=== PATIENT | female | born 1955 | race Caucasian/White ===

== ENCOUNTER 2022-03-23 11:16 | Inpatient (IN) | payer OTHER ==
[~2022-03-23] VITALS: Ht 167.6 cm; Wt 74.8 kg
[2022-03-23 12:42] LABS: BILIRUBIN,DIRECT 1.3 mg/dL (0.0-0.2); BILIRUBIN,TOTAL 2.6 mg/dL (0.2-1.0); CREATININE 1.2 mg/dL (0.6-1.3); HEMATOCRIT 23.9 % (31.2-41.9); MEAN CORPUSCULAR HEMOGLOBIN 27.2 uug (24.7-32.8); PLATELET COUNT (AUTO) 52 K/uL (179-408); POTASSIUM 5.6 mmol/L (3.5-5.1); TOTAL PROTEIN, SERUM 6.4 g/dL (6.4-8.2)
[2022-03-23 14:18] LABS: EOSINOPHILS % (MANUAL) 1 % (0-8); LYMPHOCYTES % (MANUAL) 26 % (20-40); MONOCYTES % (MANUAL) 5 % (2-10); NEUTROPHILS % (MANUAL) 68 % (42-75)
[2022-03-23] MEDS ORDERED: MORPHINE SULFATE 4 MG/1 ML DISP.SYRIN IV ONE (14:30)
[2022-03-23] MEDS ORDERED: ONDANSETRON 4 MG/2 ML VIAL IV ONE (14:30)
[2022-03-23] MEDS ORDERED: PIPERACILLIN SODIUM/TAZOBACTAM 3.375 G in IV DEXTROSE 5% 50 ML IV ONE (15:15)
[2022-03-23] MEDS ORDERED: MORPHINE SULFATE 4 MG/1 ML DISP.SYRIN ONE (15:36)
[2022-03-23] MEDS ORDERED: ONDANSETRON 4 MG/2 ML VIAL ONE (15:36)
[2022-03-23] MEDS ORDERED: PIPERACILLIN/TAZOBACTAM/D5W 50 ML IV ONE (15:36)
--- NOTE | 2022-03-23 17:00 | NUR ---
Received this admission from ER per [facility], this 66 yo female with chief complaint of abdominal pain. Transferred to bed comfortably. Routine admission care rendered. Awake, alert, oriented x 4, generalized weakness, abdomen distended, jaundiced. Midline RUE intact.
[2022-03-23 17:04] VITALS: BP 133/75
[2022-03-23] MEDS ORDERED: TEMAZEPAM 15 MG CAPSULE PO PRN (18:30)
--- NOTE | 2022-03-23 18:36 | NUR ---
Dr. Mccabe informed of admission. Home medication followed up with son, unable to access at this time. Called pharmacy, faxed list of medications.
[2022-03-23] MEDS ORDERED: VENL37.591 PO (18:58)
[2022-03-23] MEDS ORDERED: FURO40TA5 PO ×3 (18:58→19:24)
[2022-03-23] MEDS ORDERED: HYDR-3980 PO (18:58)
[2022-03-23] MEDS ORDERED: DICLOFENAC (18:58)
[2022-03-23] MEDS ORDERED: GABA600T12 PO (18:58)
[2022-03-23] MEDS ORDERED: GABA-532 PO (18:58)
[2022-03-23] MEDS ORDERED: PANT40TA49 PO (18:58)
[2022-03-23] MEDS ORDERED: SPIR50TA5 PO ×2 (18:58→19:26)
[2022-03-23] MEDS ORDERED: MIRT7.5T10 PO (19:29)
[2022-03-23 20:00] VITALS: BP 117/72
[2022-03-23] MEDS ORDERED: GABAPENTIN 300 MG CAPSULE PO PRN (20:30)
[2022-03-23] MEDS: MIRTAZAPINE 15 MG TABLET PO SCH (21:51)
[2022-03-24] VITALS (8 sets, daily range): BP systolic 114–131; BP diastolic 56–75
--- NOTE | 2022-03-24 05:01 | NUR ---
Patient awake, no sob no chest pain, no complain of pain, with distended abdomen/ascites, assisted with toileting, slept most of the night, cont to monitor. no bm on this shift, endorse to next shift to collect bm.
[2022-03-24 07:00] LABS: MEAN CORPUSCULAR HEMOGLOBIN 27.7 uug (24.7-32.8); MEAN CORPUSCULAR VOLUME 84.4 fL (75.5-95.3); PLATELET COUNT (AUTO) 78 K/uL (179-408)
[2022-03-24 07:10] LABS: HEMATOCRIT 19.6 % (31.2-41.9)
[2022-03-24 07:43] LABS: BILIRUBIN,TOTAL 2.2 mg/dL (0.2-1.0); CREATININE 1.2 mg/dL (0.6-1.3); MAGNESIUM 2.1 mg/dL (1.8-2.4); TOTAL PROTEIN, SERUM 5.3 g/dL (6.4-8.2)
[2022-03-24] MEDS ORDERED: PANTOPRAZOLE SODIUM 40 MG VIAL IV SCH (09:00)
[2022-03-24] MEDS: FUROSEMIDE 40 MG/4 ML VIAL IV SCH ×2 (10:01→16:39)
[2022-03-24] MEDS: SPIRONOLACTONE 50 MG TABLET PO SCH ×2 (10:09→16:40)
[2022-03-24] MEDS: MORPHINE SULFATE 2 MG/1 ML DISP.SYRIN IV PRN ×3 (10:10→23:11)
[2022-03-24 10:35] LABS: LYMPHOCYTES % (MANUAL) 16 % (20-40); MONOCYTES % (MANUAL) 1 % (2-10); NEUTROPHILS % (MANUAL) 83 % (42-75)
[2022-03-24] MEDS: CEFTRIAXONE 1 G in IV DEXTROSE 5% 50 ML IV SCH (18:46)
[2022-03-24] MEDS: METRONIDAZOLE 500 MG/NS 100ML 500 MG in PREMIXED 1 EACH IV SCH (20:21)
[2022-03-24] MEDS: PANTOPRAZOLE SODIUM 40 MG VIAL IV SCH (20:23)
[2022-03-24] MEDS: MIRTAZAPINE 15 MG TABLET PO SCH (20:35)
[2022-03-25 04:00] VITALS: BP 122/73
[2022-03-25] MEDS: METRONIDAZOLE 500 MG/NS 100ML 500 MG in PREMIXED 1 EACH IV SCH ×2 (04:00→16:48)
--- NOTE | 2022-03-25 05:29 | NUR ---
Patient alert oriented, speak turkmen but understand [place] communicate well with parts interpreter, Patient complaining of abdominal pain secondary to ascites, given pain meds with help after 30 minutes, assisted with toileting. S/p blood transfusion 1 unit PRBC by AM RN tolerate well, no adverse reaction noted, cont to monitor.
[2022-03-25 07:46] LABS: HEMATOCRIT 25.6 % (31.2-41.9); MEAN CORPUSCULAR HEMOGLOBIN 27.9 uug (24.7-32.8); PLATELET COUNT (AUTO) 67 K/uL (179-408)
[2022-03-25 07:53] LABS: CREATININE 1.3 mg/dL (0.6-1.3); MAGNESIUM 1.9 mg/dL (1.8-2.4); PHOSPHOROUS 4.2 mg/dL (2.5-4.9); POTASSIUM 4.5 mmol/L (3.5-5.1)
[2022-03-25 08:08] LABS: BILIRUBIN,DIRECT 1.7 mg/dL (0.0-0.2); BILIRUBIN,TOTAL 3.2 mg/dL (0.2-1.0)
[2022-03-25 09:22] LABS: BILIRUBIN,DIRECT 1.6 mg/dL (0.0-0.2); BILIRUBIN,TOTAL 3.2 mg/dL (0.2-1.0); TOTAL PROTEIN, SERUM 5.8 g/dL (6.4-8.2)
[2022-03-25] MEDS: FUROSEMIDE 40 MG/4 ML VIAL IV SCH ×2 (11:03→16:48)
[2022-03-25] MEDS: PANTOPRAZOLE SODIUM 40 MG VIAL IV SCH ×2 (11:03→21:51)
[2022-03-25] MEDS: SPIRONOLACTONE 50 MG TABLET PO SCH ×2 (11:04→16:48)
[2022-03-25] MEDS: MORPHINE SULFATE 2 MG/1 ML DISP.SYRIN IV PRN ×2 (11:05→16:52)
[2022-03-25 11:37] VITALS: BP 119/63
[2022-03-25 16:22] VITALS: BP 92/50
[2022-03-25] MEDS: CEFTRIAXONE 1 G in IV DEXTROSE 5% 50 ML IV SCH (18:00)
[2022-03-25 20:00] VITALS: BP 113/61
[2022-03-25] MEDS: MIRTAZAPINE 15 MG TABLET PO SCH (21:52)
[2022-03-26] MEDS: METRONIDAZOLE 500 MG/NS 100ML 500 MG in PREMIXED 1 EACH IV SCH ×4 (03:01→21:03)
[2022-03-26 04:00] VITALS: BP 109/63
[2022-03-26] MEDS: MORPHINE SULFATE 2 MG/1 ML DISP.SYRIN IV PRN ×4 (04:46→21:03)
[2022-03-26 07:07] LABS: HEMATOCRIT 22.6 % (31.2-41.9); MEAN CORPUSCULAR VOLUME 85.2 fL (75.5-95.3); PLATELET COUNT (AUTO) 57 K/uL (179-408)
[2022-03-26 07:18] LABS: CREATININE 1.2 mg/dL (0.6-1.3); MAGNESIUM 1.7 mg/dL (1.8-2.4); PHOSPHOROUS 3.6 mg/dL (2.5-4.9); POTASSIUM 4.3 mmol/L (3.5-5.1)
--- NOTE | 2022-03-26 07:22 | NUR ---
PT COMPLAINED OF ABDOMINAL PAIN MEDICATED WITH MORPHINE ORDERED. STILL AWAITING MEDICAL RECORDS FROM [facility].
[2022-03-26 07:23] LABS: BILIRUBIN,DIRECT 1.2 mg/dL (0.0-0.2); BILIRUBIN,TOTAL 2.1 mg/dL (0.2-1.0)
[2022-03-26 08:36] LABS: BILIRUBIN,DIRECT 1.2 mg/dL (0.0-0.2); TOTAL PROTEIN, SERUM 5.5 g/dL (6.4-8.2)
[2022-03-26] MEDS: FUROSEMIDE 40 MG/4 ML VIAL IV SCH ×2 (09:13→16:17)
[2022-03-26] MEDS: PANTOPRAZOLE SODIUM 40 MG VIAL IV SCH ×2 (09:14→21:09)
[2022-03-26] MEDS: SPIRONOLACTONE 50 MG TABLET PO SCH ×2 (09:14→16:17)
[2022-03-26] MEDS ORDERED: MAGNESIUM OXIDE 400 MG TABLET PO ONE (09:15)
--- NOTE | 2022-03-26 11:00 | NUR ---
AWAKE, ALERT AND ORIENTED. ABDOMEN GROSSLY DISTENDED AND FIRM. DENIES PAIN OR DISCOMFORT AT THIS TIME.
[2022-03-26 11:42] VITALS: BP 106/67
[2022-03-26 15:34] LABS: LYMPHOCYTES % (MANUAL) 19 % (20-40); MONOCYTES % (MANUAL) 9 % (2-10); NEUTROPHILS % (MANUAL) 72 % (42-75)
[2022-03-26 16:45] VITALS: BP 112/72
[2022-03-26] MEDS: CEFTRIAXONE 1 G in IV DEXTROSE 5% 50 ML IV SCH (17:08)
[2022-03-26 20:08] VITALS: BP 99/53
[2022-03-26] MEDS: MIRTAZAPINE 15 MG TABLET PO SCH (21:03)
[2022-03-27] MEDS: MORPHINE SULFATE 2 MG/1 ML DISP.SYRIN IV PRN ×4 (02:52→23:44)
--- NOTE | 2022-03-27 03:14 | NUR ---
ABDOMEN REMAINS VERY DISTENDED. PT MEDICATED PRN WITH MORPHINE IV INDICATED.WITH GOOD EFFECT.
[2022-03-27] MEDS: METRONIDAZOLE 500 MG/NS 100ML 500 MG in PREMIXED 1 EACH IV SCH ×3 (04:03→20:28)
[2022-03-27 04:59] VITALS: BP 121/67
[2022-03-27 06:55] LABS: HEMATOCRIT 24.7 % (31.2-41.9); MEAN CORPUSCULAR HEMOGLOBIN 27.9 uug (24.7-32.8); PLATELET COUNT (AUTO) 57 K/uL (179-408)
[2022-03-27 07:58] LABS: CREATININE 1.2 mg/dL (0.6-1.3); MAGNESIUM 1.8 mg/dL (1.8-2.4); PHOSPHOROUS 3.6 mg/dL (2.5-4.9); POTASSIUM 4.8 mmol/L (3.5-5.1)
[2022-03-27 08:26] LABS: BILIRUBIN,DIRECT 0.8 mg/dL (0.0-0.2); BILIRUBIN,TOTAL 1.5 mg/dL (0.2-1.0); TOTAL PROTEIN, SERUM 5.7 g/dL (6.4-8.2)
[2022-03-27] MEDS: FUROSEMIDE 40 MG/4 ML VIAL IV SCH ×2 (09:07→17:55)
[2022-03-27] MEDS: PANTOPRAZOLE SODIUM 40 MG VIAL IV SCH ×2 (09:07→21:33)
[2022-03-27] MEDS: SPIRONOLACTONE 50 MG TABLET PO SCH ×2 (09:07→17:55)
[2022-03-27 11:08] VITALS: BP 109/52
[2022-03-27 15:29] VITALS: BP 105/59
[2022-03-27] MEDS: CEFTRIAXONE 1 G in IV DEXTROSE 5% 50 ML IV SCH (17:56)
[2022-03-27 20:27] VITALS: BP 108/57
[2022-03-27] MEDS: MIRTAZAPINE 15 MG TABLET PO SCH (21:36)
[2022-03-28] MEDS: METRONIDAZOLE 500 MG/NS 100ML 500 MG in PREMIXED 1 EACH IV SCH ×3 (03:06→21:10)
[2022-03-28 04:15] VITALS: BP 104/59
[2022-03-28 08:09] LABS: BILIRUBIN,DIRECT 0.9 mg/dL (0.0-0.2); BILIRUBIN,TOTAL 1.8 mg/dL (0.2-1.0); CREATININE 1.2 mg/dL (0.6-1.3); MAGNESIUM 1.8 mg/dL (1.8-2.4); POTASSIUM 4.5 mmol/L (3.5-5.1); TOTAL PROTEIN, SERUM 5.2 g/dL (6.4-8.2)
[2022-03-28 08:17] LABS: BILIRUBIN,DIRECT 0.9 mg/dL (0.0-0.2); BILIRUBIN,TOTAL 1.8 mg/dL (0.2-1.0)
[2022-03-28 08:25] LABS: HEMATOCRIT 21.3 % (31.2-41.9); MEAN CORPUSCULAR HEMOGLOBIN 27.8 uug (24.7-32.8); MEAN CORPUSCULAR VOLUME 84.8 fL (75.5-95.3); PLATELET COUNT (AUTO) 52 K/uL (179-408)
[2022-03-28 08:29] LABS: NEUTROPHILS % (MANUAL) 0 % (42-75)
[2022-03-28] MEDS: FUROSEMIDE 40 MG/4 ML VIAL IV SCH ×2 (09:20→16:59)
[2022-03-28] MEDS: PANTOPRAZOLE SODIUM 40 MG VIAL IV SCH ×2 (09:20→21:11)
[2022-03-28] MEDS: SPIRONOLACTONE 50 MG TABLET PO SCH ×2 (09:21→17:00)
[2022-03-28] MEDS: MORPHINE SULFATE 2 MG/1 ML DISP.SYRIN IV PRN ×3 (09:21→21:40)
--- NOTE | 2022-03-28 09:21 | NUR ---
ABDOMEN IS LARGE BUT SOFT TO TOUCH STATED HAS SEVERE ABDOMINAL PAIN MEDICATED WITH MORPHINE ORDERED WILL CONTINUE TO OBSERVE
[2022-03-28 12:00] VITALS: BP 95/46
[2022-03-28 13:07] LABS: HEMATOCRIT 24.3 % (31.2-41.9)
[2022-03-28] MEDS: GLUCERNA SHAKE 237 ML CAN PO SCH (13:20)
[2022-03-28] MEDS: ONDANSETRON 4 MG/2 ML VIAL IV PRN ×2 (14:46→21:40)
--- NOTE | 2022-03-28 14:50 | NUR ---
PATIENT HAD EMESIS PINK IN COLOR WITH PARTLY UNDIGESTED FOOD MEDICATED WITH MORPHINE AND ZOFRAN ORDERED WILL OBSERVE.
[2022-03-28 16:00] VITALS: BP 94/52
[2022-03-28] MEDS: CEFTRIAXONE 1 G in IV DEXTROSE 5% 50 ML IV SCH (17:01)
--- NOTE | 2022-03-28 18:40 | NUR ---
PATIENT SEEN AND EXAMINED BY [facility] AWARE OF THE EMESIS WITH ORDER WANTS PATIENT TO STAY NPO FOR NOW PATIENT AWARE.
[2022-03-28 20:00] VITALS: BP 96/56
[2022-03-28 20:40] VITALS: BP 96/56
[2022-03-28] MEDS: MIRTAZAPINE 15 MG TABLET PO SCH (21:00)
[2022-03-29] VITALS: BP 102/57
[2022-03-29 04:00] VITALS: BP 104/60
[2022-03-29] MEDS: METRONIDAZOLE 500 MG/NS 100ML 500 MG in PREMIXED 1 EACH IV SCH ×3 (04:31→19:44)
--- NOTE | 2022-03-29 06:15 | NUR ---
SHIFT NOTE: PT C/O PAIN AT START OF SHIFT GAVE 2MG OF MORPHINE IV AND ASSESSED PT AGAIN BUT B/P WAS LOW 96/45 WILL CHECK AGAIN AT 0620 IF B/P WNL WILL GIVE IT/ PT HAS A RT UPPER ARM MIDLINE. MEDICATION GIVEN ORDERED NO SIGNS OF RESPIRATORY DISTRESS NOTED. PT MONITORED EVERY 2 HOUR FOR FALLS AND SAFETY NONE NOTED WILL CONTINUE TO MONITOR.
[2022-03-29] MEDS: MORPHINE SULFATE 2 MG/1 ML DISP.SYRIN IV PRN (07:14)
[2022-03-29] MEDS: ONDANSETRON 4 MG/2 ML VIAL IV PRN (07:15)
--- NOTE | 2022-03-29 07:23 | NUR ---
PT GIVEN PAIN MEDICATION FOR PAIN 12/02 B/P IS 101/60
[2022-03-29 07:49] LABS: BILIRUBIN,DIRECT 1.1 mg/dL (0.0-0.2); BILIRUBIN,TOTAL 2.1 mg/dL (0.2-1.0)
[2022-03-29 07:50] LABS: CREATININE 1.3 mg/dL (0.6-1.3); MAGNESIUM 1.9 mg/dL (1.8-2.4); PHOSPHOROUS 2.9 mg/dL (2.5-4.9); POTASSIUM 4.4 mmol/L (3.5-5.1)
[2022-03-29 08:34] LABS: HEMATOCRIT 23.8 % (31.2-41.9); MEAN CORPUSCULAR HEMOGLOBIN 27.9 uug (24.7-32.8); MEAN CORPUSCULAR VOLUME 85.8 fL (75.5-95.3); PLATELET COUNT (AUTO) 61 K/uL (179-408)
[2022-03-29 08:36] LABS: BILIRUBIN,DIRECT 0.8 mg/dL (0.0-0.2); BILIRUBIN,TOTAL 2.2 mg/dL (0.2-1.0); TOTAL PROTEIN, SERUM 5.4 g/dL (6.4-8.2)
[2022-03-29] MEDS: FUROSEMIDE 40 MG/4 ML VIAL IV SCH ×2 (08:41→16:59)
[2022-03-29] MEDS: PANTOPRAZOLE SODIUM 40 MG VIAL IV SCH ×2 (08:41→20:37)
[2022-03-29] MEDS: GLUCERNA SHAKE 237 ML CAN PO SCH (08:41)
[2022-03-29] MEDS: SPIRONOLACTONE 50 MG TABLET PO SCH ×2 (08:41→16:59)
--- NOTE | 2022-03-29 11:28 | NUR ---
PATIENT SEEN AND EXAMINED BY [facility] WITH ORDERS TO START PATIENT ON CLEAR LIQUIDS DIET FOR LUNCH AND NOTED.
[2022-03-29 11:52] VITALS: BP 94/53
--- NOTE | 2022-03-29 14:09 | NUR ---
PATIENT TOLERATED CLEAR LIQUIDS DIET ORDERED WITH NO NAUSEA OR VOMITING SO D/C PLANNING PER [facility] PATIENT WILL BE DISCHARGED AFTER DINNER AND AFTER THE LAST DOSE OF FLAGYL TODAY.
[2022-03-29 16:00] VITALS: BP 101/56
[2022-03-29] MEDS: CEFTRIAXONE 1 G in IV DEXTROSE 5% 50 ML IV SCH (17:00)
--- NOTE | 2022-03-29 18:00 | NUR ---
PATIENT TOLERATED HER DIET ORDERED DENIES NAUSEA OR VOMITING PLANING FOR DISCHARGE PATIENT WILL BE DISCHARGED TONITE SHE WILL RECEIVE HER LAST DOSE OF FLAGYL THEN WILL BE PICKED UP BY HER SON THERESA ROLLE.
[2022-03-29 20:00] VITALS: BP 95/47
[2022-03-29] MEDS: MIRTAZAPINE 15 MG TABLET PO SCH (20:38)
--- NOTE | 2022-03-29 22:24 | NUR ---
Iv Flagyl given ,midline remove and secured with 4x4 and tape. pt Family at bedside . Pt wheeled downstair accompanied by son and family member to car safely in no distress noted.
== END 2022-03-29 22:30 | disposition home or self-care (01) | DRG 433 ==
LOC: ER 11:16 → MEDSURG3 16:19
PROVIDERS: ADMIT Registered Nurse; ATTEND Registered Nurse
PROC: 05H533Z Insertion of Infusion Device into Right Subclavian Vein, Percutaneous Approach (ICD-10-PCS; 2022-03-23)
PROC: B546ZZA Ultrasonography of Right Subclavian Vein, Guidance (ICD-10-PCS; 2022-03-23)
PROC: 30233N1 Transfusion of Nonautologous Red Blood Cells into Peripheral Vein, Percutaneous Approach (ICD-10-PCS; principal; 2022-03-24)
DX: K70.31 Alcoholic cirrhosis of liver with ascites (principal); A09 Infectious gastroenteritis and colitis, unspecified; D61.818 Other pancytopenia; K76.6 Portal hypertension; E87.1 Hypo-osmolality and hyponatremia; E87.5 Hyperkalemia; E88.09 Other disorders of plasma-protein metabolism, not elsewhere classified; Z90.49 Acquired absence of other specified parts of digestive tract; Z98.84 Bariatric surgery status; K44.9 Diaphragmatic hernia without obstruction or gangrene; D64.9 Anemia, unspecified; K59.00 Constipation, unspecified; Z90.710 Acquired absence of both cervix and uterus; E80.6 Other disorders of bilirubin metabolism; Z20.822 Contact with and (suspected) exposure to COVID-19
CPT/HCPCS: 36415; 70030-TC; 71045; 83550; 83690; 83735; 84100; 85018; 85025; 85730; 86850; 86900; 86901; 86920; 87040; 93005; A4663; C9113; G0378; J0696; J1940; J2270; J2405; J2543; J3490; J7040; P9016